=== PATIENT | female | born 2000 | race Caucasian/White ===

== ENCOUNTER 2019-04-21 23:51 | Emergency (ER) | payer SELFPAY ==
[2019-04-22 00:13] VITALS: BP 143/87; TEMP 97.6; O2SAT 98
--- NOTE | 2019-04-22 00:22 | ED.PDOC ---
History of Present Illness - General Chief Complaint: Skin/Abrasion/Tear Stated Complaint: rash under bilateral breast x's 2.5 years Time Seen by Provider: 04/22/19 00:19 Source: patient Exam Limitations: no limitations - History of Present Illness Initial Comments: patient comes in today for rash underneath her breast line is been there for approximately 2 years. Patient states over the past couple of days it's been more tender and sore and so because she has a fear of doctors she finally got a friend to come with her and set aside to come to the emergency room. She's had no fever, chills, nausea or vomiting. She denies any change in soaps lotions or detergents. She has not ever been seen by a doctor for the rash. Patient denies any medical history and has no aggravating or alleviating factors. Timing/Duration: other Severity: moderate Location: torso Improving Factors: nothing Worsening Factors: nothing Associated Symptoms: denies symptoms Allergies/Adverse Reactions: Allergies Meloxicam [From [employer]] Adverse Reaction (Severe, Verified 04/22/19 00:13) Vomitting Home Medications: Ambulatory Orders Nystatin Powder 1 applic TOP BID #1 bttl 04/22/19 Review of Systems - Review of Systems Constitutional: States: no symptoms reported. Denies: chills, fever EENTM: States: no symptoms reported. Denies: eye pain, ear discharge Respiratory: States: no symptoms reported. Denies: cough, short of breath Cardiology: States: no symptoms reported. Denies: chest pain, palpitations Gastrointestinal/Abdominal: States: no symptoms reported. Denies: abdominal pain, diarrhea, nausea, vomiting Skin: States: see HPI, rash Past Medical History (General) - Patient Medical History Hx Seizures: No Hx Stroke: No Hx Dementia: No Hx Asthma: No Hx of COPD: No Hx Cardiac Disorders: No Hx Congestive Heart Failure: No Hx Pacemaker: No Hx Hypertension: No Hx Thyroid Disease: No Hx Diabetes: No Hx Gastroesophageal Reflux: No Hx Renal Disease: No Hx Cancer: No Hx of HIV: No Hx Hepatitis C: No Hx MRSA: No - Vaccination History Hx Tetanus, Diphtheria Vaccination: No Hx Influenza Vaccination: No - Social History Hx Alcohol Use: Yes - occasional Hx Substance Use: Yes - weed Family Medical History - Family History Mother Living Status: Still Living Physical Exam - Physical Exam General Appearance: Alert, Anxious, No apparent distress Eyes, Ears, Nose, Throat Exam: PERRL/EOMI, TMs normal Neck: non-tender, full range of motion, supple Cardiovascular/Chest: normal peripheral pulses, regular rate, rhythm, no murmur Respiratory: chest non-tender, lungs clear, normal breath sounds Gastrointestinal/Abdominal: normal bowel sounds, non tender, soft Skin Exam: other - slight hyperpigmentation with clusters of yellow papules that are on the underside of breast with occasional macules that are tender to the touch with no blanching, no induration, and no fluctulance Progress - Progress Progress: 04/22/19 00:23 discussed with patient need to establish care with PCP in clinic for this chronic skin condition with no signs of abscess or acute infection today. Unsure diagnosis and will try nystatin powder to area and advise follow up with clinic. Return to ER for severe worsening, fever >100.5, systemic symptoms. Departure - Departure Clinical Impression: Dermatitis Disposition: Discharge to Home or Self Care Condition: Good Departure Forms: ED Discharge - Pt. Copy, Patient Portal Self Enrollment Instructions: DI for Abrasion Prescriptions: Nystatin Powder 1 applic TOP BID #1 bttl Home Medications: Ambulatory Orders Nystatin Powder 1 applic TOP BID #1 bttl 04/22/19
== END 2019-04-22 00:33 | disposition home or self-care (01) ==
LOC: ER 23:51
DX: L30.9 Dermatitis, unspecified (principal); Z88.8 Allergy status to other drugs, medicaments and biological substances

== ENCOUNTER 2020-03-21 19:40 | Emergency (ER) | payer SELFPAY ==
[2020-03-21] MEDS ORDERED: SODIUM CHLORIDE 0.9% (FLUSH) 10 ML SYG IV PRN (20:19)
[2020-03-21 20:20] VITALS: O2SAT 100
[2020-03-21] MEDS ORDERED: ONDANSETRON INJ 4 MG/2 ML VIAL IV ONE ×2 (20:20→21:19)
[2020-03-21] MEDS ORDERED: SODIUM CHLORIDE 0.9% 1000ML 1,000 ML IVS ONE (20:20)
--- NOTE | 2020-03-21 20:20 | ED.PDOC ---
History of Present Illness - General Chief Complaint: GI Problem Stated Complaint: vomiting since this am Time Seen by Provider: 03/21/20 19:48 Source: patient - History of Present Illness Initial Comments: 19 yo female with PMH of marijuana abuse, binge alcohol abuse who presents with cc of nausea and vomiting and abd pain. Onset this morning and persistent throughout the day. Reports constant sharp/burning 10/10 pain to epigastric region which radiates to RUQ and up esophagus, worsens with eating/drinking and with vomiting. Tried Zofran at home w/o relief. Reports has vomited "stomach acid" >40 times since this morning. Denies any fevers, chills, hematemesis, black/tarry stools, diarrhea, chest pain, dyspnea. LMP was 1 week ago. No hx of abd surgeries. Reports pain after meals to upper abdomen for the past 1 year. Admits to intermittent binge drinking - last was 3 nights ago and vomited that night and felt bad the next day but improved until this morning. Also reports daily marijuana (smoking) for several years. Allergies/Adverse Reactions: Allergies Meloxicam [From [employer]] Adverse Reaction (Severe, Verified 03/21/20 20:20) Vomitting Home Medications: Ambulatory Orders NK 03/21/20 Review of Systems - Review of Systems Review of Systems: 03/21/20 21:44 as per HPI All other Systems: Reviewed and Negative Past Medical History (General) - Patient Medical History Hx Seizures: No Hx Stroke: No Hx Dementia: No Hx Asthma: No Hx of COPD: No Hx Cardiac Disorders: No Hx Congestive Heart Failure: No Hx Pacemaker: No Hx Hypertension: No Hx Thyroid Disease: No Hx Diabetes: No Hx Gastroesophageal Reflux: No Hx Renal Disease: No Hx Cancer: No Hx of HIV: No Hx Hepatitis C: No Hx MRSA: No - Vaccination History Hx Tetanus, Diphtheria Vaccination: No Hx Influenza Vaccination: No - Social History Hx Alcohol Use: Yes - occasional Hx Substance Use: Yes - weed Family Medical History - Family History Mother Living Status: Still Living Physical Exam - Physical Exam General Appearance: Alert, Anxious Eye Exam: bilateral normal Ears, Nose, Throat: hearing grossly normal, normal ENT inspection, normal pharynx Neck: non-tender, full range of motion, supple, normal inspection Respiratory: lungs clear, normal breath sounds, no respiratory distress, no accessory muscle use Cardiovascular/Chest: normal peripheral pulses, regular rate, rhythm, no edema, no murmur Peripheral Pulses: radial,right: 2+, radial,left: 2+ Gastrointestinal/Abdominal: soft, no organomegaly, tenderness - moderate with some guarding to epigastric region and RUQ, no rebound tenderness or rigidity/peritoneal signs Back Exam: normal inspection, no CVA tenderness, no vertebral tenderness Extremity: normal range of motion, non-tender, normal inspection, no pedal edema, no calf tenderness 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 Consider also acute gastritis, cholelithiasis, cholecystitis, pancreatitis, , gastric ulcer, duodenal ulcer, GI bleed, flu, strep, UTI, other -obtain labs, flu, strep, UA, hcg. Obtain CT A/P -Zofran, GI cocktail, IV fluids, Protonix 40 mg IV 03/21/20 21:47 -Pain improved to 2/10 severity with GI cocktail. Pt remains stable. 03/21/20 23:17 -Labs reviewed - largely unremarkable. -CT A/P shows no acute processes. Pt remains stable. Discussed dx of cannabinoid hyperemesis syndrome and acute gastritis and continued home treatment and outpatient f/u. -dc home in good condition. Promethazine PRN Rx given. Jhony Herman MD Billing #[id number] 03/21/20 20:19 IV Care:Saline Lock per Protoc QSHIFT Sodium Chloride 0.9% (Flush) [Saline Flush Syringe] 10 ml IV PRN PRN URINALYSIS Stat 03/21/20 21:40 Hold Metformin x 48Hrs [id number] Laboratory Results - last 24 hr 03/21/20 03/21/20 03/21/20 20:34 20:34 21:57 WBC 10.5 RBC 4.64 Hgb 13.2 Hct 38.7 MCV 83.5 MCH 28.4 MCHC 34.0 RDW 14.4 Plt Count 322 MPV 9.4 Absolute Neuts (auto) 8.50 H Absolute Lymphs (auto) 1.50 Absolute Monos (auto) 0.50 Absolute Eos (auto) 0.00 Absolute Basos (auto) 0.10 Neutrophils % 80.8 H Lymphocytes % 13.9 L Monocytes % 4.5 Eosinophils % 0.3 L Basophils % 0.5 Sodium 135 Potassium 3.5 L Chloride 102 Carbon Dioxide 21 Anion Gap 15.5 BUN 12 Creatinine 0.59 L BUN/Creatinine Ratio 20.3 H Random Glucose 99 Serum Osmolality 269.9 L Calcium 9.5 Total Bilirubin 0.9 Direct Bilirubin 0.1 Indirect Bilirubin 0.8 AST 16 ALT 18 Alkaline Phosphatase 49 L Serum Total Protein 8.6 H Albumin 4.4 Lipase 24 Serum HCG, Qual Negative Departure - Departure Clinical Impression: Cannabinoid hyperemesis syndrome Acute gastritis Qualifiers: Gastritis type: alcoholic Gastritis bleeding: without bleeding Qualified Code(s): K29.20 - Alcoholic gastritis without bleeding Time of Disposition: 23:14 Disposition: Discharge to Home or Self Care Condition: Good Departure Forms: ED Discharge - Pt. Copy, Patient Portal Self Enrollment Instructions: DI for Gastritis, Marijuana Use and Addiction (DC) Diet: other - GERD diet Activity: increase activity as tolerated Home Medications: Ambulatory Orders NK 03/21/20 Additional Instructions: I strongly advise you quit use of marijuana which is likely contributing to your nausea & vomiting symptoms. I also strongly advise avoiding foods in your diet which may worsen inflammation of the stomach (gastritis) such as alcohol, sodas, spicy foods, fried/fatty foods, etc... I advise taking Protonix 40 mg by mouth once daily for 2 weeks. In addition you may take Tums as needed for heartburn symptoms. Eat frequent small meals rather than large meals. Return if symptoms worsens or other concerning symptoms arise such as bloody vomiting, worsening abdominal pain, fever >100 F, etc..
[2020-03-21] MEDS ORDERED: PANTOPRAZOLE SODIUM IV 40 MG VIAL IV ONE (21:19)
[2020-03-21] MEDS ORDERED: ALUM & MAG HYDROX-SIMETHICONE 30 ML, LIDOCAINE VISCOUS 2% 15 ML PO ONE ×2 (21:19)
[2020-03-21] MEDS ORDERED: ALUM & MAG HYDROX-SIMETHICONE 30 ML UD ONE (21:20)
[2020-03-21] MEDS ORDERED: LIDOCAINE HCL 2% (MOUTH-THROAT) 15 ML UD ONE (21:20)
[2020-03-21] MEDS ORDERED: PANTOPRAZOLE SODIUM IV 40 MG VIAL ONE (21:20)
--- NOTE | 2020-03-21 23:03 | CT ---
EXAM: CT Abdomen and Pelvis With Intravenous Contrast CLINICAL HISTORY: The patient is 19 years old and is Female; epigastric RUQ pain, intractable vomiting TECHNIQUE: Axial computed tomography images of the abdomen and pelvis with intravenous contrast. Sagittal and coronal reformatted images were created and reviewed. This CT exam was performed using one or more of the following dose reduction techniques: automated exposure control, adjustment of the mA and/or kV according to patient size, and/or use of iterative reconstruction technique. COMPARISON: No relevant prior studies available. FINDINGS: LUNG BASES: Unremarkable. No mass. No consolidation. ABDOMEN: LIVER: Unremarkable. No mass. GALLBLADDER AND BILE DUCTS: No calcified stones. No ductal dilation. PANCREAS: No ductal dilation. No mass. SPLEEN: Unremarkable. ADRENALS: Unremarkable. No mass. KIDNEYS AND URETERS: Unremarkable. The kidneys enhance symmetrically. No obstructing renal or ureteral calculus is seen. No hydronephrosis or hydroureter. No perinephric fluid or stranding. STOMACH AND BOWEL: The stomach is minimally fluid filled. The small bowel is normal in caliber. Stool is present within the right colon. The remainder of the colon is decompressed. There is no bowel obstruction. PELVIS: APPENDIX: The appendix is normal in caliber without surrounding inflammation. BLADDER: Unremarkable. No mass. REPRODUCTIVE: A 1.1 cm right ovarian cyst is present. No follow-up imaging is recommended. The uterus and left ovary are normal. ABDOMEN and PELVIS: INTRAPERITONEAL SPACE: Trace free fluid is present within the pelvis which is likely physiologic. No free air. BONES/JOINTS: No acute fracture. SOFT TISSUES: The soft tissues are normal. VASCULATURE: Unremarkable. No abdominal aortic aneurysm. LYMPH NODES: Unremarkable. No enlarged lymph nodes. IMPRESSION: No acute findings on this contrasted CT of the abdomen and pelvis to explain the patient's symptoms. Electronically signed by: Oneyda Dill MD 03/21/2020 11:01 PM CDT
[2020-03-21] MEDS ORDERED: PROMETHAZINE TAB (ER DISP) 25 MG TAB PO ONE (23:18)
[2020-03-21 23:33] VITALS: BP 113/56; TEMP 98.9
== END 2020-03-21 23:41 | disposition home or self-care (01) ==
LOC: ER 19:40
DX: K29.20 Alcoholic gastritis without bleeding (principal); R11.2 Nausea with vomiting, unspecified; R10.13 Epigastric pain; F12.10 Cannabis abuse, uncomplicated
CPT/HCPCS: 74177; 80048; 80076; 83690; 84703; 85025; J2405; J7030; Q0169